=== PATIENT | male | born 1945 | race Caucasian/White ===

== ENCOUNTER 2019-02-15 10:48 | Outpatient (CLI) | payer OTHER, MEDICARE | END 2019-02-16 20:57 | disposition home or self-care (01) | LOC: SRD 10:48 | PROVIDERS: ATTEND Internal Medicine | DX: I11.0 Hypertensive heart disease with heart failure (principal); I50.9 Heart failure, unspecified; Z90.49 Acquired absence of other specified parts of digestive tract | CPT/HCPCS: 71046-TC ==